=== PATIENT | male | born 1975 | race Caucasian/White ===

== ENCOUNTER 2019-10-17 18:14 | Emergency (ER) | payer OTHER, SELFPAY ==
[2019-10-17 18:15] VITALS: BP 143/74; PULSE 53; RESP 16; TEMP 36.4; O2SAT 96; BMI 32.8
--- NOTE | 2019-10-17 18:34 | ED.VIS.GEN ---
History of Present Illness Chief Complaint: Edema Informant: Patient Onset: Days - Past 2 days Context: Sudden Onset Timing: Continuous Quality: Swelling of left lower extremity distal to the knee Location: Left lower extremity Current Severity: Moderate Maximum Severity: Moderate Worsened by: Possible injury versus immobility versus DVT Relieved by: Nothing Associated Symptoms: Knee pain due to possible injury Narrative: Patient is a healthy 43-year-old male who presents with knee pain due to unspecified injury. He states he has had swelling of his left lower extremity involving the knee and distal to the knee for the past 2 days. There is no history of DVT. He denies chest pain or shortness of breath. He denies paresthesia, anesthesia motors. He denies prior injury to the knee. Prior similar symptoms: No Recent Illness/Hospitalization: No - Past Medical History (1) No significant past medical history Status: Acute Past Medical History Primary Care Physician: Jim Aguilar DO [NON-STAFF] - Prior records reviewed: No Past Medical History: None Surgical History: no surgical history Lives: Spouse/ Significant Other Smoking Status: Never smoker Drugs: None Review of Systems General: Denies: Chills, Fever, Malaise Cardiovascular: Denies: Chest pain, Palpitations Respiratory: Denies: Dyspnea, Cough, Dyspnea on exertion Gastrointestinal: Denies: Nausea, Vomiting Musculoskeletal: Reports: Swelling, Extremity Pain. Denies: Myalgias, Arthralgias Skin: Denies: Rash, Wounds Neurological: Denies: Weakness, Parasthesia Hematologic: Denies: Easy bruising, Easy bleeding Physical Exam Vital Signs/Narrative: Vital Signs Temp Pulse Resp BP Pulse Ox 10/17/19 18:15 97.6 F L 53 L 16 143/74 H 96 Inital Vital Signs reviewed: Yes General: Well nourished, Well developed, No Acute Distress Head: Normocephalic, Atraumatic Eyes: Perrl, EOMI. Negative for: Pale conjunctiva, Scleral icterus Cardiovascular: Regular rate, Regular rhythm Respiratory: No distress Extremities: Nontender, Edema, - - There is swelling of the left knee. There is pitting edema involving the knee down to the foot. There is no pain outpatient long distribution deep venous system. There is no palpable cords. There is unilateral swelling. There is no discoloration. The patella is not ballotable. There is no obvious effusion. Able to extend and flex 100 8090 degrees respectively. No pain or laxity with varus or valgus stress testing. No joint line pain. Negative modified Nubia's test and Jojo's test.. Negative for: No edema Skin: Normal color, No rash Neurological: Alert, Oriented x3, Cranial nerves II-XII grossly intact, Normal Strength, Normal Sensation Psychological: Normal affect, Normal Mood Diagnostic/Tx/Re-eval Laboratory Results 10/17/19 18:53 D-Dimer Quant (PE/DVT) 0.51 H* Patient was low probability based on well score for DVT. However, d-dimer is elevated. Venous duplex study was ordered for tomorrow. He did receive dose of Eliquis. - Medical Decision Making D-dimer was obtained since patient is at low risk based on Wells score. If positive will treat with anticoagulant and order venous duplex study as an outpatient. If negative will treat for lymphedema due to immobility and injury. Patient states his primary care physician was Dr. Kartik Weber who retired. He was referred to physician in the group. ED Disposition - Plan for ED Patient: Disposition: Home or Assisted Living Diagnosis: Left leg swelling, Evaluate for DVT Instructions: ED Peripheral Edema, Unilateral Referrals: Jim Aguilar DO [NON-STAFF] - Tima Aguirre MD [STAFF PHYSICIAN] - As Needed
[2019-10-17 19:15] LABS: D-Dimer Quantitative (DVT/PE) 0.51 FEU/ug/m (0.27-0.49)
[2019-10-17] MEDS: APIXABAN 5 MG TABLET 10 MG PO (19:49)
[2019-10-17 19:51] VITALS: PULSE 80; RESP 16; O2SAT 98
== END 2019-10-17 19:52 | disposition home or self-care (01) ==
PROVIDERS: Emergency Provider Emergency Medicine
DX: M79.89 Other specified soft tissue disorders (principal); M25.562 Pain in left knee; R79.89 Other specified abnormal findings of blood chemistry
CPT/HCPCS: 85379; 99283

== ENCOUNTER → 2019-10-18 10:02 | Outpatient (CLI) | payer OTHER, SELFPAY ==
[2019-10-17 18:15] VITALS: BMI 32.8
--- NOTE | 2019-10-18 10:05 | VDLE_ITS ---
Reason For Study: Elevated D-dimer Procedure LEFT Exam performed in department. GSV is normal. Pt seen as next day ED, No PCP. CFV is compressible, spontaneous, phasic, competent, and demonstrates normal augmentation. FV is compressible, spontaneous, phasic, competent and demonstrates normal augmentation. POP V is compressible, spontaneous, phasic, competent and demonstrates normal augmentation. T/P Trunk is compressible. PTV is compressible. LT PerV is compressible. Interpretation Summary There is no evidence of left lower extremity deep vein thrombosis. Left great saphenous vein appears patent and compressible segmentally. Ordering Physician: Anup Harvey Referring Physician: David Crouch Performed By: Katie Wild RVT and Student
== END ==
PROVIDERS: Referring Provider Emergency Medicine; Visit Provider Emergency Medicine
DX: R79.89 Other specified abnormal findings of blood chemistry (principal)
CPT/HCPCS: 93971